=== PATIENT | male | born 1970 | race Two or more races ===

== ENCOUNTER 2025-06-04 16:31 | Emergency (ER) | payer OTHER ==
[~2025-06-04] VITALS: Ht 182.9 cm; Wt 95.3 kg
[2025-06-04] MEDS ORDERED: PROAIR RESPICL90 MCG IH (18:27)
[2025-06-04] MEDS ORDERED: KETOROLAC TROMETHAMINE 60 MG VIAL IM ONE (19:00)
[2025-06-04] MEDS ORDERED: DEXAMETHASONE SODIUM PHOSPHATE 4 MG/ML VIAL IM ONE (19:00)
[2025-06-04] MEDS ORDERED: ACETAMINOPHEN 500 MG GEL..CAP PO ONE (19:00)
[2025-06-04] MEDS ORDERED: ORPHENADRINE CITRATE 30 MG/ML AMPUL IM ONE (19:00)
[2025-06-04 21:44] LABS: BASO % 0.2 % (0.1-1.2); EOS # 0.16 (0.04-0.54); EOS % 2.7 % (0.7-7.0); LYMPH # 0.89 (1.18-3.74); LYMPH % 15.2 % (19.3-53.1); MEAN PLATELET VOLUME 9.00 fl (9.4-12.4); MONO # 0.65 (0.24-0.82); MONO % 11.1 % (4.7-12.5); NEUT # 4.13 (1.56-6.13); NEUT % 70.8 % (34.0-71.1); RED CELL DISTRIBUTION WIDTH 12.5 % (11.6-14.4)
[2025-06-04 22:07] LABS: INR 0.98
[2025-06-04 22:23] LABS: ALT/SGPT 42.0 U/L (12-78); AST/SGOT 22.0 U/L (15-37); BILIRUBIN TOTAL 0.63 mg/dL (0.3-1.2); BUN CREA RATIO 22.0 (7.0-25.0); CREATININE SERUM 0.69 mg/dL (0.70-1.30); GFR 119.04; GLOBULINA 3.0 G/DL (2.4-3.5); GLUCOSE FASTING 101.0 mg/dL (65-100); OSMOLALITY SERUM 284.0 MOSM/KG (275-295)
[2025-06-04] MEDS ORDERED: IBU600 MG PO (23:58)
[2025-06-04] MEDS ORDERED: NORFLEX100MG PO (23:58)
[2025-06-04] MEDS ORDERED: PEPCID AC20 MG PO (23:58)
== END 2025-06-05 00:27 | disposition home or self-care (01) ==
LOC: EDBD 16:32 → ER 16:32
PROVIDERS: General Practice
DX: M94.0 Chondrocostal junction syndrome [Tietze] (principal); R07.89 Other chest pain; J45.909 Unspecified asthma, uncomplicated; Z88.0 Allergy status to penicillin; Z91.013 Allergy to seafood; E03.8 Other specified hypothyroidism